=== PATIENT | male | born 1960 | race Caucasian/White ===

== ENCOUNTER → 2019-05-03 | Outpatient (CLI) | payer MEDICARE ==
--- NOTE | 2019-05-03 12:25 | Diagnostic Imaging Report ---
EXAMINATION: Right knee radiograph, 3 views. COMPARISON: None. HISTORY: 59-year-old male, right knee pain. FINDINGS: There is a small ossification projecting just distal to the lateral tibial plateau on image 1 which is in a location concerning for a Segond type fracture. There is a small knee joint effusion. There is severe patellofemoral compartment joint space loss without prominent osteophyte formation. Medial compartment is mildly narrowed. There is chondrocalcinosis. IMPRESSION: 1. Curvilinear area of high attenuation in the expected location for a Segond type fracture. This potentially could relate to a Segond type fracture. An area of chondrocalcinosis would be an additional differential diagnostic consideration. A Segond-type fracture is highly associated with anterior cruciate ligament tear. Recommend correlation with patient history and evaluation for instability. If further evaluation of the patient is needed, dedicated MRI right knee without contrast would be recommended. 2. Severe patellofemoral compartment joint space loss and mild medial compartment joint space loss with small knee joint effusion. Dictated by: Dictated on workstation # [id number]
== END ==
LOC: RAD 11:37
PROVIDERS: ATTEND Nurse Practitioner Family
DX: S82.142A Displaced bicondylar fracture of left tibia, initial encounter for closed fracture (principal); S83.511A Sprain of anterior cruciate ligament of right knee, initial encounter
CPT/HCPCS: 73562

== ENCOUNTER 2019-08-03 07:41 | Emergency (ER) | payer MEDICARE ==
[~2019-08-03] VITALS: Ht 182 cm; Wt 87.1 kg
[2019-08-03] MEDS ORDERED: NS 100 ML (IVPB) BAG IV ONE (08:15)
[2019-08-03] MEDS ORDERED: IOHEXOL 350 MG/ML 100 ML (OMNIPAQUE 350) VIAL IV ONE (08:15)
[2019-08-03] MEDS ORDERED: HOLD METFORMIN - RECEIVED CONTRAST 20 ML VIAL IV SCH (08:15)
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
[2019-08-03 08:23] LABS: BASOPHILS % (AUTO) 1 % (0-10); EOSINOPHILS # (AUTO) 0.1 10^3/uL (0.0-0.3); EOSINOPHILS % (AUTO) 1 % (0-10); HEMATOCRIT 48 % (40-54); HEMOGLOBIN 15.7 G/DL (13.3-17.7); LYMPHOCYTES % (AUTO) 18 % (12-44); MEAN CORPUSCULAR HEMOGLOBIN 32 PG (25-34); MEAN CORPUSCULAR HGB CONC 33 G/DL (32-36); MEAN CORPUSCULAR VOLUME 97 FL (80-99); MONOCYTES # (AUTO) 0.6 X 10^3 (0.0-1.0); MONOCYTES % (AUTO) 11 % (0-12); NEUTROPHILS # (AUTO) 3.8 X 10^3 (1.8-7.8); NEUTROPHILS % (AUTO) 69 % (42-75); PLATELET COUNT 145 10^3/uL (130-400); RED CELL DISTRIBUTION WIDTH 12.9 % (10.0-14.5); WHITE BLOOD COUNT 5.5 10^3/uL (4.3-11.0)
[2019-08-03 08:45] LABS: ALANINE AMINOTRANSFERASE 27 U/L (0-55); ALBUMIN 4.4 GM/DL (3.2-4.5); ALKALINE PHOSPHATASE 58 U/L (40-136); AMYLASE 49 U/L (25-125); BILIRUBIN,TOTAL 0.4 MG/DL (0.1-1.0); BUN/CREATININE RATIO 21; CALCIUM 8.7 MG/DL (8.5-10.1); CARBON DIOXIDE 24 MMOL/L (21-32); CHLORIDE 109 MMOL/L (98-107); CREATININE SERUM 0.99 MG/DL (0.60-1.30); GFR ESTIMATED > 60; GLUCOSE 89 MG/DL (70-105); LIPASE 36 U/L (8-78); POTASSIUM 4.4 MMOL/L (3.6-5.0); SODIUM 143 MMOL/L (135-145); TOTAL PROTEIN 7.3 GM/DL (6.4-8.2)
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
[2019-08-03] MEDS ORDERED: MUPI1OIN6 TP (10:35)
[2019-08-03] MEDS ORDERED: SULF1TAB35 PO (10:35)
[2019-08-03 10:57] VITALS: BP 144/78
[2019-08-04] MEDS ORDERED: PRD20T PO (17:47)
[2019-08-04] MEDS ORDERED: CLIN150C17 PO (17:48)
== END 2019-08-03 10:56 | disposition home or self-care (01) ==
LOC: EDUNIT# 07:41 → ER 07:42
DX: L02.211 Cutaneous abscess of abdominal wall (principal); K42.9 Umbilical hernia without obstruction or gangrene; L02.216 Cutaneous abscess of umbilicus; Z90.49 Acquired absence of other specified parts of digestive tract; Z96.641 Presence of right artificial hip joint
CPT/HCPCS: 36415; 74177; 80053; 82150; 83690; 85025; 87070; 87205

== ENCOUNTER 2019-08-04 16:55 | Emergency (ER) | payer MEDICARE ==
[~2019-08-04] VITALS: Ht 187 cm; Wt 83.4 kg
[~2019-08-04 16:55] MED LIST: MUPI1OIN6 TP; SULF1TAB35 PO
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
[2019-08-04] MEDS ORDERED: predniSONE 20 MG TAB PO ONE (17:15)
[2019-08-04] MEDS ORDERED: diphenhydrAMINE 50 MG/ML INJ (BENADRYL) IM ONE (17:15)
[2019-08-04] MEDS ORDERED: FAMOTIDINE 20 MG (PEPCID) TABLET PO ONE (17:15)
--- NOTE | 2019-08-04 17:45 | NUR ---
PT STATES ITCHING IS BETTER ET REDNESS CONTINUES. NADER NOTIFEID.
[2019-08-04] MEDS ORDERED: PRD20T PO (17:47)
[2019-08-04] MEDS ORDERED: CLIN150C17 PO (17:48)
[2019-08-04 17:55] VITALS: BP 139/79
== END 2019-08-04 17:55 | disposition home or self-care (01) ==
LOC: EDUNIT# 16:55 → ER 16:56
DX: T78.40XA Allergy, unspecified, initial encounter (principal); Z96.641 Presence of right artificial hip joint; Z88.2 Allergy status to sulfonamides; Z90.49 Acquired absence of other specified parts of digestive tract; Z87.820 Personal history of traumatic brain injury
CPT/HCPCS: 96372; 99284

== ENCOUNTER 2019-08-11 05:28 | Outpatient (CLI) | payer MEDICARE ==
[~2019-08-11] VITALS: Ht 182.9 cm; Wt 89.5 kg
[~2019-08-11 05:28] MED LIST changes: +CLIN150C17 PO; +PRD20T PO
== END 2019-08-11 10:40 | disposition home or self-care (01) ==
LOC: PREOP 05:28
PROVIDERS: ATTEND Surgery
DX: Z01.818 Encounter for other preprocedural examination (principal)

== ENCOUNTER 2023-06-22 15:39 | Emergency (ER) | payer MEDICARE ==
[~2023-06-22] VITALS: Ht 182.8 cm; Wt 88.9 kg
[~2023-06-22 15:39] MED LIST changes: +ACHD5005 PO; -CLIN150C17 PO; +CLIN150C20 PO; -SULF1TAB35 PO; +SULF1TAB38 PO
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
[2023-06-22] MEDS ORDERED: CEPH500T PO (16:33)
[2023-06-22 16:45] VITALS: BP 144/79
== END 2023-06-22 16:45 | disposition home or self-care (01) ==
LOC: EDUNIT# 15:39 → ER 15:42
DX: S90.922D Unspecified superficial injury of left foot, subsequent encounter (principal); L08.9 Local infection of the skin and subcutaneous tissue, unspecified; Z88.2 Allergy status to sulfonamides; X58.XXXD Exposure to other specified factors, subsequent encounter
CPT/HCPCS: 87070; 87205; 99282